=== PATIENT | female | born 1970 | race Caucasian/White ===

== ENCOUNTER 2017-12-28 10:41 | Emergency (ER) | END 2017-12-28 20:32 | disposition home or self-care (01) ==

== ENCOUNTER 2018-01-30 19:07 | Emergency (ER) | END 2018-01-30 22:30 | disposition left against medical advice (07) ==

== ENCOUNTER 2018-01-31 14:52 | Emergency (ER) | END 2018-02-01 00:03 | disposition short-term general hospital (02) ==

== ENCOUNTER 2018-05-30 11:42 | Emergency (ER) | payer SELFPAY ==
[~2018-05-30] VITALS: Wt 78.0 kg
[~2018-05-30 11:42] MED LIST: ONDA4TAB14 PO; PANT40TA3 PO; PANT40TA4 PO
[2018-05-30 11:45] VITALS: BP 140/91; PULSE 99; RESP 18
== END 2018-05-30 12:26 | disposition left against medical advice (07) ==
LOC: E/R 11:42
DX: Z53.21 Procedure and treatment not carried out due to patient leaving prior to being seen by health care provider (principal)